=== PATIENT | male | born 1960 | race Caucasian/White ===

== ENCOUNTER 2020-11-25 09:31 | Outpatient (RCR) | payer OTHER, SELFPAY ==
[2020-11-25] MEDS: COVID-19 VACC, MRNA(PFIZER)/PF 30 MCG/0.3 ML SYRINGE IM (16:28)
[2020-12-16] MEDS: COVID-19 VACC, MRNA(PFIZER)/PF 30 MCG/0.3 ML SYRINGE IM (16:29)
== END 2021-02-17 23:59 ==
LOC: IMMUN 09:31
PROVIDERS: Visit Provider Family Medicine
DX: Z23 Encounter for immunization (principal)
CPT/HCPCS: 0001A; 0002A; 91300